=== PATIENT | female | born 1960 | race Two or more races ===

== ENCOUNTER → 2016-04-19 | Outpatient (CLI) | payer BC | END | disposition home or self-care (01) | LOC: HKI 09:36 | PROVIDERS: ATTEND Orthopaedic Surgery | DX: M17.12 Unilateral primary osteoarthritis, left knee (principal); I69.354 Hemiplegia and hemiparesis following cerebral infarction affecting left non-dominant side; Z96.651 Presence of right artificial knee joint | CPT/HCPCS: 20610; J7327; Z7500; G0463 ==

== ENCOUNTER → 2016-10-28 | Outpatient (CLI) | payer BC | END | disposition home or self-care (01) | LOC: HKI 09:05 | PROVIDERS: ATTEND Orthopaedic Surgery | DX: M25.562 Pain in left knee (principal); M17.12 Unilateral primary osteoarthritis, left knee | CPT/HCPCS: 20610; J7327 ==

== ENCOUNTER → 2017-05-19 | Outpatient (CLI) | END | disposition home or self-care (01) ==

== ENCOUNTER 2017-08-04 13:07 | Day surgery (SDC) | END 2017-08-04 17:30 | disposition home or self-care (01) ==

== ENCOUNTER → 2017-10-13 | Outpatient (CLI) | END | disposition home or self-care (01) ==

== ENCOUNTER 2017-10-29 14:14 | Day surgery (SDC) | END 2017-10-29 16:51 | disposition home or self-care (01) ==

== ENCOUNTER → 2018-05-28 | Outpatient (CLI) | payer MEDICARE, OTHER ==
[~2018-05-28] MED LIST: ASPI-799 PO; CITA20TA8 PO; FLUT16SP17 NASAL; IBUP-1545 PO; IODI150T PO; LORA1TAB59 PO; METH750T2 PO; OMEP40CA6 PO; TRAZ-111 PO; UBID200C36 PO; VIT B; VITAMIN D DAILY
--- NOTE | 2018-05-28 10:08 | CONS ---
Consult Date/Type/Reason Admit Date/Time Initial Consult Date Date/Time of Note DATE: 05/28/18 TIME: 10:04 Subjective 58-year-old female follows up today for left knee [place] injection. She has known tricompartmental arthritis of the left knee. She was a previous patient of Dr Isabel. She was originally scheduled to have her left total knee arthroplasty done in 2015 but unfortunately had a stroke. She has been treated with a chain injections since then. These have been successful. Her last injection was in September and had relief until last month. Denies any changes in her symptoms. Denies numbness and tingling. Objective Vitals Weight: 170 pounds Height: 5 feet 2 inches Temperature: 90.4 Heart Rate: 81 Blood Pressure: 128/81 Respiratory Rate: 12 Exam General: Awake, alert, in no acute distress, pleasant and cooperative Heart: regular rhythm Lungs: breathing comfortably, no tachypnea or dyspnea MUSCULOSKELETAL: Left lower extremity: Skin is intact. There is tenderness to palpation along the medial lateral joint lines. No effusion Sensation intact to light touch in a sural, saphenous, deep peroneal, s uperficial peroneal, medial and lateral plantar nerve distribution. Motor is intact, patient able to dorsiflex and plantarflex ankle and extend and flex great toe. Dorsalis Pedis pulse +2, Brisk capillary refill. Compartments are soft. Calves non-tender to palpation bilaterally. Results/Medications Home Meds Reported Medications Ubidecarenone* (Co Q-10*) 200 Mg Capsule, 200 MG PO HS, CAP 08/04/17 [Vitamin D Daily] No Conflict Check 08/04/17 [Vit. B 12 Daily] No Conflict Check 08/04/17 Iodine (KELP) 150 Mcg Tablet, 225 MCG PO, TAB 08/04/17 Trazodone Hcl* (Trazodone Hcl*) 50 Mg Tablet, 50 MG PO DAILY, #60 TAB 08/04/17 Aspirin/Calcium Carbonate/Mag (Ra Aspirin Buffered 325 Mg) 325 Mg Tablet, 81 MG PO, TAB 08/04/17 Omeprazole* (Omeprazole*) 40 Mg Capsule.dr, 40 MG PO DAILY, #30 CAP 08/04/17 Methocarbamol* (Methocarbamol*) 750 Mg Tablet, 500 MG PO TID, TAB 08/04/17 Loratadine/Pseudoephedrine (Ra Lorata-D 24-Hour Tablet) 1 Each Tab.er.24h, 1 EACH PO 08/04/17 Ibuprofen* (Ibuprofen*) 800 Mg Tab, 800 MG PO Q6H PRN for PAIN, TAB 08/04/17 Fluticasone Propionate* (Fluticasone Propionate* Nasal) 50 Mcg/[place] - 16 Gm [place].susp, 500 SPRAY NASAL BID, #1 BOTTLE TO EACH NOSTRIL 08/04/17 Citalopram Hydrobromide* (Citalopram Hydrobromide*) 20 Mg Tablet, 20 MG PO D AILY, #30 TAB 08/04/17 Assessment/Plan Hospital Course (Demo Recall) 58-year-old female with known osteoarthritis of the left knee. She has successfully been treated in the past with a chain injections. She she would li ke to proceed with another Monovisc injection. Plan: Left knee Monovisc injection Ice Low impact activities follow-up 6 months Assessment/Plan (Daily) Left knee viscosupplementation injection procedure: Risks and benefits of viscosupplementation injection reviewed with patient. The risks include infection, failure, pain, swelling, nerve/tendon/ligament damage. The patient verbalized understanding and verbal consent was obtained prior to procedure. The left knee was prepped in a sterile fashion with alcohol and betadine the site of injection was confirmed. Lateral approach was used. The skin and capsule was anesthetized with 3mL 1% lidocaine. The left knee was injected with Monovisc. Injection flowed freely. Good hemostasis was achieved and no complications noted. The patient tolerated the procedure well. Limit activity and ice for 24-48 hours ELIJAH ESCALANTE MD May 28, 2018 10:07
== END | disposition home or self-care (01) ==
LOC: HKI 09:10
PROVIDERS: ATTEND Orthopaedic Surgery Adult Reconstructive Orthopaedic Surgery
DX: M17.12 Unilateral primary osteoarthritis, left knee (principal)
CPT/HCPCS: 20610; G0463; J7327